=== PATIENT | female | born 1990 | race Caucasian/White ===

== ENCOUNTER → 2016-04-15 | Outpatient (CLI) | payer MEDICAID | LOC: RAD 19:46 | PROVIDERS: ATTEND Student in an Organized Health Care Education/Training Program | DX: N92.1 Excessive and frequent menstruation with irregular cycle (principal) | CPT/HCPCS: 72197; A9576 ==

== ENCOUNTER 2016-10-25 00:17 | Emergency (ER) | payer MEDICAID ==
[2016-10-25 00:56] LABS: APPEARANCE,URINE CLEAR; BILIRUBIN,URINE NEGATIVE (NEGATIVE); GLUCOSE, URINE NEGATIVE (NEGATIVE); KETONES,URINE NEGATIVE (NEGATIVE); LEUKOCYTE ESTERASE,URINE LARGE (NEGATIVE); NITRITE,URINE NEGATIVE (NEGATIVE); PROTEIN,URINE 100 mg/dL (NEGATIVE); URINE SPECIFIC GRAVITY 1.002; UROBILINOGEN,URINE NEGATIVE mg/dL (<2.0)
--- NOTE | 2016-10-25 02:08 | ER Document Report ---
ED GI/ - General Chief Complaint: Vaginal Pain Stated Complaint: VAGINAL PAIN WITH EARLY Time Seen by Provider: 10/25/16 01:53 Notes: Patient is a 26-year-old female that comes emergency department for chief complaint of bladder cramps and pain and blood with urination. Symptoms started earlier today. Patient states she has had this many times in the past and has even been evaluated and treated by urology because of this. She is also at 7 weeks gestation, had a normal ultrasound showing an IUP 2 days ago. She denies fever or chills, she states she had nausea earlier but it resolved, she denies vomiting. She denies flank pain. She denies upper abdominal pain. She denies vaginal bleeding or discharge. TRAVEL OUTSIDE OF THE [place] IN LAST 30 DAYS: No - Related Data Allergies/Adverse Reactions: latex [Latex] Allergy (Intermediate, Verified 06/04/14 10:30) rash Past Medical History - General Information source: Patient - Social History Smoking Status: Never Smoker Frequency of alcohol use: None Drug Abuse: None Lives with: Family Family History: Arthritis, CAD, CVA, DM, Hyperlipidemia, Hypertension, Malignancy, Thyroid Disfunction - Past Medical History Cardiac Medical History: Denies: Hx Coronary Artery Disease, Hx Heart Attack Pulmonary Medical History: Denies: Hx Asthma, Hx Bronchitis, Hx COPD, Hx Pneumonia Neurological Medical History: Denies: Hx Cerebrovascular Accident, Hx Seizures Renal/ Medical History: Denies: Hx Peritoneal Dialysis Musculoskeltal Medical History: Denies Hx Arthritis Past Surgical History: Reports: Hx Gynecologic Surgery - IUD surgically removed a year ago - Immunizations Immunizations up to date: Yes Hx Diphtheria, Pertussis, Tetanus Vaccination: Yes Review of Systems - Review of Systems Constitutional: No symptoms reported EENT: No symptoms reported Cardiovascular: No symptoms reported Respiratory: No symptoms reported Gastrointestinal: See HPI Genitourinary: See HPI Female Genitourinary: See HPI Musculoskeletal: No symptoms reported Skin: No symptoms reported Hematologic/Lymphatic: No symptoms reported Neurological/Psychological: No symptoms reported Physical Exam - Vital signs Vitals: Temp Pulse Resp BP Pulse Ox 97.6 F 84 22 H 127/76 H 100 10/25/16 00:25 10/25/16 00:25 10/25/16 00:25 10/25/16 00:25 10/25/16 00:25 Interpretation: Normal - General General appearance: Appears well, Alert - HEENT Head: Normocephalic, Atraumatic Eyes: Normal Pupils: PERRL - Respiratory Respiratory status: No respiratory distress Chest status: Nontender Breath sounds: Normal Chest palpation: Normal - Cardiovascular Rhythm: Regular. No: Tachycardia Heart sounds: Normal auscultation, S1 appreciated, S2 appreciated Murmur: No - Abdominal Inspection: Normal Distension: No distension Bowel sounds: Normal Tenderness: Nontender. No: Tender, Guarding Organomegaly: No organomegaly - Back Back: Normal, Nontender. No: Tender, CVA tenderness - Extremities General upper extremity: Normal inspection, Nontender, Normal color, Normal ROM , Normal temperature General lower extremity: Normal inspection, Nontender, Normal color, Normal ROM , Normal temperature, Normal weight bearing. No: Kelsey's sign - Neurological Neuro grossly intact: Yes Cognition: Normal Orientation: AAOx4 [place] Coma Scale Eye Opening: Spontaneous [place] Coma Scale Verbal: Oriented [place] Coma Scale Motor: Obeys Commands [place] Coma Scale Total: 15 Speech: Normal Motor strength normal: LUE, RUE, LLE, RLE Sensory: Normal - Psychological Associated symptoms: Normal affect, Normal mood - Skin Skin Temperature: Warm Skin Moisture: Dry Skin Color: Normal Course - Re-evaluation Re-evalutation: Nontender abdomen. No CVA tenderness. No fever, no hypotension or tachycardia. Patient does keep going to the bathroom. She complains of dysuria. Urine is consistent with urinary tract infection. Culture placed. Given Keflex and Pyridium. No evidence of pyelonephritis on exam or by symptoms. There is a mild leukocyte elevation. I did discuss an ultrasound because of patient's symptoms, however she declines. She denies any vaginal bleeding. She does have a soft abdomen. She did recently have an ultrasound with IUP. I feel like this is the appropriate decision. HCG is elevated, chemistry is normal. Discussed treatment, follow-up , return precautions, patient states understanding and agreement. - Vital Signs Vital signs: Temp Pulse Resp BP Pulse Ox 98.1 F 87 16 116/70 99 10/25/16 04:53 10/25/16 04:53 10/25/16 04:53 10/25/16 04:53 10/25/16 04:53 - Laboratory Result Diagrams: 10/25/16 03:08 10/25/16 03:08 Laboratory results interpreted by me: 10/25/16 10/25/16 10/25/16 00:27 03:08 03:08 WBC 10.6 H Seg Neutrophils % 87.3 H Lymphocytes % 7.2 L Absolute Neutrophils 9.3 H Beta HCG, Quant 27771.00 H Urine Protein 100 H Urine Blood LARGE H Ur Leukocyte Esterase LARGE H Discharge - Discharge Clinical Impression: Dysuria, Lower abdominal pain Condition: Stable Disposition: HOME, SELF-CARE Additional Instructions: You have a urinary tract infection, we have a urine culture growing in our lab. Remaining studies do not show any concerning abnormalities. Take the Keflex and Pyridium as prescribed. Follow-up with REHABILITATION PHYSICIAN. Return to emergency department for any concerning or worsening symptoms including worsening pain, vaginal bleeding, fever, flank pain, vomiting, etc. Prescriptions: Cephalexin Monohydrate [Keflex 500 mg Capsule] 500 mg PO BID #14 capsule Phenazopyridine HCl [Pyridium 200 mg Tablet] 200 mg PO TID #9 tablet Forms: Return to Work Referrals: ZEE PAUL MD [Primary Care Provider] - Follow up as needed
[2016-10-25] MEDS ORDERED: CEPHALEXIN 500 MG CAPSULE PO ONE (02:28)
[2016-10-25 03:36] LABS: ABSOLUTE LYMPHOCYTES (AUTO) 0.8 10^3/uL (0.5-4.7); ABSOLUTE MONOCYTES (AUTO) 0.6 10^3/uL (0.1-1.4); ABSOLUTE NEUT (AUTO) 9.3 10^3/uL (1.7-8.2); BASOPHILS % (AUTO) 0.2 % (0-2); EOSINOPHILS % (AUTO) 0.1 % (0-6); HEMATOCRIT 39.1 % (36.0-47.0); HEMOGLOBIN 13.2 g/dL (12.0-15.5); HGB HCT DIFFERENCE 0.5; LYMPHOCYTES % (AUTO) 7.2 % (13-45); MEAN CORPUSCULAR HEMOGLOBIN 29.9 pg (27.0-33.4); MEAN CORPUSCULAR HGB CONC 33.7 g/dL (32.0-36.0); MEAN CORPUSCULAR VOLUME 89 fl (80-97); MONOCYTES % (AUTO) 5.2 % (3-13); RED CELL DISTRIBUTION WIDTH 12.9 % (11.5-14.0); SEGMENTED NEUTROPHILS % (AUTO) 87.3 % (42-78); WHITE BLOOD COUNT 10.6 10^3/uL (4.0-10.5)
[2016-10-25 03:40] LABS: ANION GAP 12 (5-19); BLOOD UREA NITROGEN 9 mg/dL (7-20); CALCIUM 9.1 mg/dL (8.4-10.2); CARBON DIOXIDE 23 mmol/L (22-30); CHLORIDE 104 mmol/L (98-107); CREATININE RESULT 0.76 mg/dL (0.52-1.25); GLUCOSE 94 mg/dL (75-110); POTASSIUM 4.2 mmol/L (3.6-5.0); SODIUM 138.7 mmol/L (137-145)
[2016-10-25] MEDS ORDERED: PHENAZOPYRIDINE HCL 200 MG TABLET PO ONE (04:02)
[2016-10-25 04:56] VITALS: BP 116/70
== END 2016-10-25 04:56 | disposition home or self-care (01) ==
LOC: ER 00:17
DX: R30.0 Dysuria (principal); R10.30 Lower abdominal pain, unspecified; R10.2 Pelvic and perineal pain; R31.9 Hematuria, unspecified; Z3A.01 Less than 8 weeks gestation of pregnancy
CPT/HCPCS: 99283; 36415; 87086; 84702; 85025; 80048; 81001; J3490

== ENCOUNTER 2017-03-09 16:59 | Observation (INO) | payer MEDICAID ==
[2017-03-09] MEDS ORDERED: BETAMET ACET/BETAMET NA INJ 6 MG/1 ML IM PRN (17:08)
[2017-03-09 17:53] LABS: AMORPHOUS SEDIMENT,URINE TRACE /HPF; APPEARANCE,URINE CLOUDY; BILIRUBIN,URINE NEGATIVE (NEGATIVE); GLUCOSE, URINE NEGATIVE (NEGATIVE); KETONES,URINE NEGATIVE (NEGATIVE); LEUKOCYTE ESTERASE,URINE TRACE (NEGATIVE); NITRITE,URINE NEGATIVE (NEGATIVE); PROTEIN,URINE NEGATIVE (NEGATIVE); URINE SPECIFIC GRAVITY 1.023; UROBILINOGEN,URINE NEGATIVE mg/dL (<2.0)
[2017-03-09] MEDS: IBUPROFEN 600 MG TABLET PO SCH (20:00)
[2017-03-09] MEDS ORDERED: PROGESTERONE,MICRONIZED 100 MG CAPSULE PV SCH (22:00)
--- NOTE | 2017-03-10 08:43 | Admission Physical ---
Datetime Report Generated by CPN: 03/10/2017 08:43 CURRENT ADMISSION Chief Complaint: Uterine Contractions Indication for Induction: Not Applicable Indication for Induction: , Intrauterine ; Observation/Evaluation; Obstetrical Complication Admit Plan: Admit to Unit; Initiate Labor Protocol ALLERGIES Medication Allergies: No Medication Allergies: latex/MO/rash (03/09/2017) Medication Allergies: latex/MO/rash (06/04/2014) Latex: Latex Allergies OBSTETRICAL HISTORY EDC: 06/13/2017 00:00 : 2 Para: 1 Term: 1 : 0 SAB: 0 IAB: 0 Ectopic: 0 Livin Cesareans: 0 VBACs: 0 Multiple Births: 0 Gestational Diabetes: No Rh Sensitization: No Incompetent Cervix: No ROS: No Infertility: No ART Treatment: No Uterine Anomaly: Yes IUGR: No Hx Previous C/S: No Macrosomia: No Hx Loss/Stillborn: No PIH: No Hx : No Placenta Previa/Abruption: No Depression/PP Depression: Yes PTL/PROM: No Post Hemorrhage: No Current Procedures: Ultrasound Obstetrical History Comments: G1-38.6 baby girl 7lbs 7oz G2-current BICORNATE UTERUS SEE RECORDS Alcohol: No Marijuana : No Cocaine: No Other Illicit Drugs: No Cigarettes: Never Smoker. 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 Surgery: No Heart Disease: No Hosp/Surgery: No Autoimmune Disorder: No Anesthetic Complications: No Kidney Disease: No Abnormal Pap Smear: No Neuro/Epilepsy: No Psychiatric Disorders: No Other Medical Diseases: No Hepatitis/Liver Disease: No Significant Family History: No Varicosities/Phlebitis: No Trauma/Violence : No Thyroid Dysfunction: No Medical History Comments: ANXIETY (on zoloft), MIGRAINES INFECTIOUS HISTORY Gonorrhea: No Genital Herpes: No Chlamydia: No Tuberculosis: No Syphilis: No Hepatitis: No HIV/AIDS Exposure: No Rash or Viral Illness: No HPV: No PHYSICAL EXAM General: Normal HEENT: Normal Neurologic: Normal Thyroid: Normal Heart: Normal Lungs: Normal Breast: Deferred Back: Normal Abdomen: Normal Genitourinary Exam: Normal Extremities: Normal DTRs: Normal Pelvic Type: Adequate VAGINAL EXAM Dilatation: closed MEMBRANES Membranes: Intact FETUS A EGA: 26.2 Monitoring: External US Decelerations: None Admit Comment: pt admitted for observation after falling and then began leyla.. Pt noted on US to have funneling of membranes, she is admitted for eval and observation. Dr Tubbs has spoken with MFM concerning management PLANS FOR LABOR AND DELIVERY Labor and Delivery: None Pain Management: Epidural Feeding Preference: Breast Benefit of Breast Feed Discussed: Yes Circumcision: N/A INFORMED CONSENT Signature: with User ID: [email or web address]
[2017-03-10] MEDS ORDERED: ACETAMINOPHEN 325 MG TABLET ONE (11:18)
[2017-03-10] MEDS ORDERED: ACETAMINOPHEN 325 MG TABLET PO PRN (11:19)
[2017-03-10] MEDS: IBUPROFEN 600 MG TABLET PO SCH (17:48)
--- NOTE | 2017-03-10 18:14 | RADIOLOGY REPORT (SQ) ---
EXAM DESCRIPTION: U/S OB LIMITED COMPLETED DATE/TIME: 03/10/2017 5:45 pm REASON FOR STUDY: Cervical length COMPARISON: None. TECHNIQUE: Limited transabdominal grayscale ultrasound for evaluation of specific requested obstetri felix parameters. LIMITATIONS: None. FINDINGS: CERVICAL LENGTH: 4.9 cm Closed. SERENE: 17.9 cm. FHR: 144 beats per minute. PRESENTATION: Cephalic. OTHER: No other significant findings. IMPRESSION: LIMITED OBSTETRICAL ULTRASOUND WITH MEASURED PARAMETERS DELINEATED ABOVE. Trimester of : Second trimester - 13 weeks 1 day to 27 weeks 6 days. TECHNICAL DOCUMENTATION: JOB ID: [id number] [employer]- All Rights Reserved
--- NOTE | 2017-03-10 18:18 | L&D Progress Notes ---
PROGRESS NOTES Datetime Report Generated by CPN: 03/10/2017 18:18 PROGRESS NOTE Impression Other: Shortened cervix with funneling Procedures: Ultrasound Plan: Discharge Informed Consent Obtained: Risks, Benefits and Alternatives Discussed Vital Signs : Reviewed Comment: Cervical length is normal now on repeat cervical length by TVUS. Will discharge to home with mondified bedrest and f/u with MFM next week. Pt has remained without contractions. Will cont Crinone and Motrin as per MFM instructions. Modified bedrest precautions reviewed. VAGINAL EXAM Dilatation: closed MEMBRANES Membranes: Intact SIGNATURE SIGNATURE: [id number] Signature: with User ID: [email or web address]
--- NOTE | 2017-03-10 18:24 | PDOC DISCHARGE SUMMARY ---
General - Admit/Disc Date/PCP Admission Date/Primary Care Provider: 03/09/17 18:24 ZEE PAUL MD Discharge Date: 03/10/17 - Discharge Diagnosis (1) Cervical shortening affecting in third trimester Is this a current diagnosis for this admission?: Yes Summary: Admitted due to cervical length 1.7cm with funneling of membranes into cervix on 03/09 and patient was reporting rectal pressure after fall. Pt admitted and started on progesterone and motrin as per MFM recommendations. Will f/u with MFM next week. Cvx length now greater than 4cm and remains closed. Will discharge to home. - Additional Information Home Medications: Vit/Iron Fum/Folic AC [ Tablet] 1 each PO DAILY 03/09/17 Sertraline HCl [Zoloft] 10 mg PO DAILY 03/09/17 History of Present Illness History of Present Illness: ABA GARCIA is a 27 year old at 26+3ega admitted due to cervical length 1.7cm with funneling of membranes into cervix on 03/09 and patient was reporting rectal pressure after fall. Pt admitted and started on progesterone and motrin as per MFM recommendations. Will f/u with MFM next week. Cvx length now greater than 4cm and remains closed. Will discharge to home. Hospital Course Hospital Course: 27 year old at 26+3ega admitted due to cervical length 1.7cm with funneling of membranes into cervix on 03/09 and patient was reporting rectal pressure after fall. Pt admitted and started on progesterone and motrin as per MFM recommendations. Will f/u with MFM next week. Cvx length now greater than 4cm and remains closed. Will discharge to home. Physical Exam - Physical Exam Vital Signs: Intake & Output 03/09/17 03/10/17 03/11/17 06:59 06:59 06:59 Weight 91.6 kg General appearance: PRESENT: no acute distress, well-developed, well-nourished Head exam: PRESENT: atraumatic, normocephalic Respiratory exam: PRESENT: clear to auscultation tika, symmetrical, unlabored Cardiovascular exam: PRESENT: RRR. ABSENT: diastolic murmur, rubs, systolic murmur Pulses: PRESENT: normal dorsalis pedis pul, +2 pedal pulses bilateral Vascular exam: PRESENT: normal capillary refill GI/Abdominal exam: PRESENT: normal bowel sounds, soft. ABSENT: distended, guarding, mass, organolmegaly, rebound, tenderness Rectal exam: PRESENT: deferred Neurological exam: PRESENT: alert, awake, oriented to person, oriented to place , oriented to time, oriented to situation, CN II-XII grossly intact. ABSENT: motor sensory deficit Psychiatric exam: PRESENT: appropriate affect, normal mood. ABSENT: homicidal ideation, suicidal ideation Skin exam: PRESENT: dry, intact, warm. ABSENT: cyanosis, rash Result Impressions: Obstetrics Ultrasound 03/10/17 17:00 IMPRESSION: LIMITED OBSTETRICAL ULTRASOUND WITH MEASURED PARAMETERS DELINEATED ABOVE. Trimester of : Second trimester - 13 weeks 1 day to 27 weeks 6 days. Status: Image reviewed by me Plan Discharge Plan: Discharge to home. Time Spent: Less than 30 Minutes
--- NOTE | 2017-03-10 20:17 | Admission Physical ---
Datetime Report Generated by CPN: 03/10/2017 20:17 CURRENT ADMISSION Chief Complaint: Uterine Contractions Indication for Induction: Not Applicable Indication for Induction: , Intrauterine ; Observation/Evaluation; Obstetrical Complication Admit Plan: Admit to Unit; Initiate Labor Protocol ALLERGIES Medication Allergies: No Medication Allergies: latex/MO/rash (03/09/2017) Medication Allergies: latex/MO/rash (06/04/2014) Latex: Latex Allergies OBSTETRICAL HISTORY EDC: 06/13/2017 00:00 : 2 Para: 1 Term: 1 : 0 SAB: 0 IAB: 0 Ectopic: 0 Livin Cesareans: 0 VBACs: 0 Multiple Births: 0 Gestational Diabetes: No Rh Sensitization: No Incompetent Cervix: No ROS: No Infertility: No ART Treatment: No Uterine Anomaly: Yes IUGR: No Hx Previous C/S: No Macrosomia: No Hx Loss/Stillborn: No PIH: No Hx : No Placenta Previa/Abruption: No Depression/PP Depression: Yes PTL/PROM: No Post Hemorrhage: No Current Procedures: Ultrasound Obstetrical History Comments: G1-38.6 baby girl 7lbs 7oz G2-current BICORNATE UTERUS SEE RECORDS Alcohol: No Marijuana : No Cocaine: No Other Illicit Drugs: No Cigarettes: Never Smoker. [id number] MEDICAL HISTORY Diabetes: No Blood Transfusion: No Pulmonary Disease (Asthma, TB): No Breast Disease: No Hypertension: No Safety Attendant Surgery: No Heart Disease: No Hosp/Surgery: No Autoimmune Disorder: No Anesthetic Complications: No Kidney Disease: No Abnormal Pap Smear: No Neuro/Epilepsy: No Psychiatric Disorders: No Other Medical Diseases: No Hepatitis/Liver Disease: No Significant Family History: No Varicosities/Phlebitis: No Trauma/Violence : No Thyroid Dysfunction: No Medical History Comments: ANXIETY (on zoloft), MIGRAINES INFECTIOUS HISTORY Gonorrhea: No Genital Herpes: No Chlamydia: No Tuberculosis: No Syphilis: No Hepatitis: No HIV/AIDS Exposure: No Rash or Viral Illness: No HPV: No PHYSICAL EXAM General: Normal HEENT: Normal Neurologic: Normal Thyroid: Normal Heart: Normal Lungs: Normal Breast: Deferred Back: Normal Abdomen: Normal Genitourinary Exam: Normal Extremities: Normal DTRs: Normal Pelvic Type: Adequate VAGINAL EXAM Dilatation: closed MEMBRANES Membranes: Intact FETUS A EGA: 26.2 Monitoring: External US Decelerations: None Admit Comment: pt admitted for observation after falling and then began leyla.. Pt noted on US to have funneling of membranes, she is admitted for eval and observation. Dr Tubbs has spoken with MFM concerning management PLANS FOR LABOR AND DELIVERY Labor and Delivery: None Pain Management: Epidural Feeding Preference: Breast Benefit of Breast Feed Discussed: Yes Circumcision: N/A INFORMED CONSENT Informed Consent Obtained: Risks, Benefits and Alternatives Discussed Signature: with User ID: [email or web address]
== END 2017-03-10 19:03 | disposition home or self-care (01) ==
LOC: LC 16:59 → LR 18:24
PROVIDERS: ADMIT Obstetrics & Gynecology Gynecology; ATTEND Obstetrics & Gynecology Gynecology
DX: O26.872 Cervical shortening, second trimester (principal); R19.8 Other specified symptoms and signs involving the digestive system and abdomen; W19.XXXA Unspecified fall, initial encounter; O47.02 False labor before 37 completed weeks of gestation, second trimester; O34.02 Maternal care for unspecified congenital malformation of uterus, second trimester; Q51.3 Bicornate uterus; O99.342 Other mental disorders complicating pregnancy, second trimester; F41.9 Anxiety disorder, unspecified; Z3A.26 26 weeks gestation of pregnancy; Z79.899 Other long term (current) drug therapy
CPT/HCPCS: 87086; 87077; 81001; 87081; 87491; 87591; 82731; 76815; J3490 ×3

== ENCOUNTER 2017-03-22 15:25 | Observation (INO) | payer MEDICAID ==
[2017-03-22] MEDS ORDERED: BETAMET ACET/BETAMET NA INJ 6 MG/1 ML IM ONE (15:35)
[2017-03-22] MEDS ORDERED: BETAMET ACET/BETAMET NA INJ 6 MG/1 ML ONE (15:40)
[2017-03-22] MEDS ORDERED: MAGNESIUM SULFATE 4 GM/100 ML RTUPB IV ONE ×2 (16:44→17:15)
[2017-03-22 16:45] LABS: APPEARANCE,URINE CLEAR; BILIRUBIN,URINE NEGATIVE (NEGATIVE); COLOR,URINE YELLOW; GLUCOSE, URINE NEGATIVE (NEGATIVE); KETONES,URINE NEGATIVE (NEGATIVE); LEUKOCYTE ESTERASE,URINE NEGATIVE (NEGATIVE); NITRITE,URINE NEGATIVE (NEGATIVE); PROTEIN,URINE NEGATIVE (NEGATIVE); URINE SPECIFIC GRAVITY 1.017; UROBILINOGEN,URINE NEGATIVE mg/dL (<2.0)
[2017-03-22 17:00] LABS: URINE AMPHETAMINES SCREEN NEGATIVE; URINE BARBITURATES SCREEN NEGATIVE; URINE BENZODIAZEPINES SCREEN NEGATIVE; URINE COCAINE SCREEN NEGATIVE; URINE MARIJUANA (THC) SCREEN NEGATIVE; URINE METHADONE SCREEN NEGATIVE; URINE PHENCYCLIDINE SCREEN NEGATIVE
[2017-03-22] MEDS ORDERED: MAGNESIUM SULFATE 20 GM/500 ML RTUINJ IV PRN (17:15)
[2017-03-22] MEDS ORDERED: RINGERS SOLUTION,LACTATED 300 ML IV ONE (17:50)
[2017-03-22 18:45] LABS: ABSOLUTE LYMPHOCYTES (AUTO) 0.6 10^3/uL (0.5-4.7); ABSOLUTE MONOCYTES (AUTO) 0.3 10^3/uL (0.1-1.4); ABSOLUTE NEUT (AUTO) 9.8 10^3/uL (1.7-8.2); BASOPHILS % (AUTO) 0.2 % (0-2); EOSINOPHILS % (AUTO) 0.2 % (0-6); HEMATOCRIT 34.3 % (36.0-47.0); HEMOGLOBIN 11.8 g/dL (12.0-15.5); LYMPHOCYTES % (AUTO) 5.5 % (13-45); MEAN CORPUSCULAR HEMOGLOBIN 30.1 pg (27.0-33.4); MEAN CORPUSCULAR HGB CONC 34.4 g/dL (32.0-36.0); MEAN CORPUSCULAR VOLUME 88 fl (80-97); MONOCYTES % (AUTO) 2.4 % (3-13); PLATELET COUNT 181 10^3/uL (150-450); RED BLOOD COUNT 3.91 10^6/uL (3.72-5.28); RED CELL DISTRIBUTION WIDTH 13.3 % (11.5-14.0); SEGMENTED NEUTROPHILS % (AUTO) 91.7 % (42-78); TOTAL CELLS COUNTED % (AUTO) 100 %; WHITE BLOOD COUNT 10.7 10^3/uL (4.0-10.5)
[2017-03-22 18:56] LABS: AMNISURE (ROM) NEGATIVE (NEGATIVE)
[2017-03-22] MEDS ORDERED: BUTALB/ACETAMINOPHEN/CAFFEINE 1 TAB EACH PO ONE (20:46)
[2017-03-22] MEDS ORDERED: BUTALB/ACETAMINOPHEN/CAFFEINE 1 TAB EACH ONE (20:49)
[2017-03-23] MEDS: RINGERS SOLUTION,LACTATED 1,000 ML IV PRN ×2 (03:12→12:21)
[2017-03-23] MEDS ORDERED: ACETAMINOPHEN 325 MG TABLET PO ONE (05:56)
[2017-03-23] MEDS ORDERED: ACETAMINOPHEN 325 MG TABLET ONE (05:59)
[2017-03-23] MEDS ORDERED: BETAMET ACET/BETAMET NA INJ 6 MG/1 ML ONE (14:08)
--- NOTE | 2017-03-23 14:33 | PDOC DISCHARGE SUMMARY ---
General - Admit/Disc Date/PCP Admission Date/Primary Care Provider: 03/22/17 15:46 MALINDA NAIR MD Discharge Date: 03/23/17 - Discharge Diagnosis (1) Cervical shortening affecting in third trimester Is this a current diagnosis for this admission?: Yes Summary: 28+2ega with cervical shortening at 9mm-10 mm on 03/18. Cvx closed. Steroid complete today. Magnesium sulfate for neuroprotection done last evening. GBS positive. Reviewed plan for modified bedrest at discharge. No ctx on monitor since admission yesterday. reviewed need to continue procardia - pt has not picked up. Will discharge to home once 2nd dose of steroids given today. Need to go home with modified bedrest and plan for Disability coverage - will fill out paperwork. (2) Carrier of group B Streptococcus Is this a current diagnosis for this admission?: Yes Summary: Will need prophy in labor. - Additional Information Home Medications: Vit/Iron Fum/Folic AC [ Tablet] 1 each PO DAILY 03/09/17 Sertraline HCl [Zoloft] 10 mg PO DAILY 03/09/17 Acetaminophen [Tylenol 325 mg Tablet] 975 mg PO Q4HP PRN tablet 03/10/17 History of Present Illness Patient complains of: cervical shortening History of Present Illness: ABA GARCIA is a 27 year old female at 28+2ega presented from the office with increased vaginal and rectal pressure with known cervical shortening 9-10mm. Will be steroid complete at discharge. magnesium for neuroprotection given last evening. No ctx throughout the evening - meets criteria for discharge. Hospital Course Hospital Course: 27 year old female at 28+2ega presented from the office with increased vaginal and rectal pressure with known cervical shortening 9-10mm. Will be steroid complete at discharge. magnesium for neuroprotection given last evening. No ctx throughout the evening - meets criteria for discharge. Physical Exam - Physical Exam Vital Signs: Intake & Output 03/22/17 03/23/17 03/24/17 06:59 06:59 06:59 Weight 93.45 kg General appearance: PRESENT: no acute distress, well-developed, well-nourished Head exam: PRESENT: atraumatic, normocephalic Respiratory exam: PRESENT: clear to auscultation tika, symmetrical, unlabored Cardiovascular exam: PRESENT: RRR. ABSENT: diastolic murmur, rubs, systolic murmur Pulses: PRESENT: normal dorsalis pedis pul, +2 pedal pulses bilateral Vascular exam: PRESENT: normal capillary refill GI/Abdominal exam: PRESENT: normal bowel sounds, soft. ABSENT: distended, guarding, mass, organolmegaly, rebound, tenderness Extremities exam: PRESENT: full ROM. ABSENT: calf tenderness, clubbing, pedal edema Neurological exam: PRESENT: alert, awake, oriented to person, oriented to place , oriented to time, oriented to situation, CN II-XII grossly intact. ABSENT: motor sensory deficit Psychiatric exam: PRESENT: appropriate affect, normal mood. ABSENT: homicidal ideation, suicidal ideation Skin exam: PRESENT: dry, intact, warm. ABSENT: cyanosis, rash Result Laboratory Results: 03/22/17 18:11 03/22/17 03/22/17 03/22/17 15:40 18:11 18:11 WBC 10.7 H RBC 3.91 Hgb 11.8 L Hct 34.3 L MCV 88 MCH 30.1 MCHC 34.4 RDW 13.3 Plt Count 181 Seg Neutrophils % 91.7 H Lymphocytes % 5.5 L Monocytes % 2.4 L Eosinophils % 0.2 Basophils % 0.2 Absolute Neutrophils 9.8 H Absolute Lymphocytes 0.6 Absolute Monocytes 0.3 Absolute Eosinophils 0.0 Absolute Basophils 0.0 Urine Color YELLOW Urine Appearance CLEAR Urine pH 9.0 Ur Specific [place] 1.017 Urine Protein NEGATIVE Urine Glucose (UA) NEGATIVE Urine Ketones NEGATIVE Urine Blood NEGATIVE Urine Nitrite NEGATIVE Ur Leukocyte Esterase NEGATIVE Urine WBC (Auto) 1 Urine RBC (Auto) 0 Blood Type A POSITIVE Antibody Screen NEGATIVE Status: Imported from PACS Plan Discharge Plan: Discharge to home Time Spent: Less than 30 Minutes
[2017-03-23] MEDS ORDERED: BETAMET ACET/BETAMET NA INJ 6 MG/1 ML IM ONE (15:50)
== END 2017-03-23 14:32 | disposition home or self-care (01) ==
LOC: LC 15:25 → LR 15:46
PROVIDERS: ADMIT Obstetrics & Gynecology; ATTEND Obstetrics & Gynecology
PROC: 3E0233Z Introduction of Anti-inflammatory into Muscle, Percutaneous Approach (ICD-10-PCS; principal; 2017-03-22)
PROC: 3E0233Z Introduction of Anti-inflammatory into Muscle, Percutaneous Approach (ICD-10-PCS; 2017-03-23)
DX: O26.873 Cervical shortening, third trimester (principal); Z22.330 Carrier of Group B streptococcus; Z3A.28 28 weeks gestation of pregnancy
CPT/HCPCS: 84112; 86900; 86901; 36415; 86850; 85025; 86592; 81001; 80307; 96372 ×2; J3475; J3490 ×2; J0702 ×2

== ENCOUNTER 2017-05-03 13:49 | Outpatient (CLI) | payer MEDICAID ==
--- NOTE | 2017-05-03 14:42 | Non Stress Test Report ---
Non Stress Test Datetime Report Generated by CPN: 05/03/2017 14:41 DEMOGRAPHIC EGA NST: 34.1 INDICATION Indication for Study: Ordered by Provider MONITORING Monitor Explained: Monitor Explained; Test Explained; Patient Verbalized Understanding Time on Monitor: 05/03/2017 14:08 Time off Monitor: 05/03/2017 14:39 NST Duration: 31 NST INTERVENTIONS NST Interventions: IV Fluids Physician Notified NST: Dr. Feroz BABY A: [id number] BABY A Movement : Present Contraction Frequency : none FHR Baseline : 140 Accelerations : 15X15 Decelerations : None Variability : Moderate 6-25bpm NST Review: Meets Criteria for Reactive NST NST Review and Verified By : Edward Becerra RN NST Results: Reactive NST REPORT Report Trigger: Send Report
[2017-05-03] MEDS ORDERED: BUTALB/ACETAMINOPHEN/CAFFEINE 1 TAB EACH PO ONE (14:45)
[2017-05-03] MEDS ORDERED: BUTALB/ACETAMINOPHEN/CAFFEINE 1 TAB EACH ONE (14:48)
[2017-05-03 15:26] LABS: APPEARANCE,URINE SLIGHTLY-CLOUDY; BILIRUBIN,URINE NEGATIVE (NEGATIVE); COLOR,URINE YELLOW; GLUCOSE, URINE NEGATIVE (NEGATIVE); KETONES,URINE NEGATIVE (NEGATIVE); LEUKOCYTE ESTERASE,URINE MODERATE (NEGATIVE); NITRITE,URINE NEGATIVE (NEGATIVE); PROTEIN,URINE NEGATIVE (NEGATIVE); URINE SPECIFIC GRAVITY 1.012; UROBILINOGEN,URINE NEGATIVE mg/dL (<2.0)
[2017-05-03 15:41] LABS: URINE AMPHETAMINES SCREEN NEGATIVE; URINE BARBITURATES SCREEN NEGATIVE; URINE BENZODIAZEPINES SCREEN NEGATIVE; URINE COCAINE SCREEN NEGATIVE; URINE MARIJUANA (THC) SCREEN NEGATIVE; URINE METHADONE SCREEN NEGATIVE; URINE PHENCYCLIDINE SCREEN NEGATIVE
== END 2017-05-03 16:20 | disposition home or self-care (01) ==
LOC: LC 13:49
PROVIDERS: ATTEND Obstetrics & Gynecology
PROC: 4A1HXCZ Monitoring of Products of Conception, Cardiac Rate, External Approach (ICD-10-PCS; principal; 2017-05-03)
DX: Z34.83 Encounter for supervision of other normal pregnancy, third trimester (principal); Z36.89 Encounter for other specified antenatal screening; Z3A.34 34 weeks gestation of pregnancy
CPT/HCPCS: 59025; 81001; 80307; J3490

== ENCOUNTER 2017-05-22 21:41 | Inpatient (IN) | payer MEDICAID ==
[2017-05-22] MEDS ORDERED: PENICILLIN G POTASSIUM 5,000,000 UNIT in DEXTROSE 5%-WATER 100 ML IV ONE (22:11)
[2017-05-22] MEDS ORDERED: RINGERS SOLUTION,LACTATED 1,000 ML IV PRN (22:11)
[2017-05-22] MEDS ORDERED: LIDOCAINE 1% INJ-PF (10 MG/ML) 30 ML SDV ONE (22:14)
[2017-05-22] MEDS ORDERED: MISOPROSTOL 0.2 MG TABLET ONE (22:14)
[2017-05-22] MEDS ORDERED: PENICILLIN G-K 5 MILLION UNIT VIAL ONE (22:15)
[2017-05-22] MEDS ORDERED: OXYTOCIN/NORMAL SALINE 20 UNIT/1,000 ML RTUINJ ONE (22:15)
[2017-05-22 22:18] LABS: APPEARANCE,URINE SLIGHTLY-CLOUDY; BILIRUBIN,URINE NEGATIVE (NEGATIVE); COLOR,URINE STRAW; GLUCOSE, URINE NEGATIVE (NEGATIVE); KETONES,URINE NEGATIVE (NEGATIVE); LEUKOCYTE ESTERASE,URINE NEGATIVE (NEGATIVE); NITRITE,URINE NEGATIVE (NEGATIVE); PROTEIN,URINE NEGATIVE (NEGATIVE); URINE SPECIFIC GRAVITY 1.005; UROBILINOGEN,URINE NEGATIVE mg/dL (<2.0)
[2017-05-22 22:18] LABS: AMNISURE (ROM) NEGATIVE (NEGATIVE)
[2017-05-22 22:30] LABS: ABSOLUTE LYMPHOCYTES (AUTO) 1.2 10^3/uL (0.5-4.7); ABSOLUTE MONOCYTES (AUTO) 0.7 10^3/uL (0.1-1.4); ABSOLUTE NEUT (AUTO) 5.8 10^3/uL (1.7-8.2); BASOPHILS % (AUTO) 0.2 % (0-2); EOSINOPHILS % (AUTO) 0.4 % (0-6); HEMATOCRIT 32.6 % (36.0-47.0); HEMOGLOBIN 10.9 g/dL (12.0-15.5); MEAN CORPUSCULAR HEMOGLOBIN 27.8 pg (27.0-33.4); MEAN CORPUSCULAR HGB CONC 33.4 g/dL (32.0-36.0); MEAN CORPUSCULAR VOLUME 83 fl (80-97); MONOCYTES % (AUTO) 9.1 % (3-13); PLATELET COUNT 169 10^3/uL (150-450); RED BLOOD COUNT 3.91 10^6/uL (3.72-5.28); RED CELL DISTRIBUTION WIDTH 14.1 % (11.5-14.0); SEGMENTED NEUTROPHILS % (AUTO) 75.3 % (42-78); TOTAL CELLS COUNTED % (AUTO) 100 %; WHITE BLOOD COUNT 7.7 10^3/uL (4.0-10.5)
[2017-05-22 22:37] LABS: URINE BARBITURATES SCREEN NEGATIVE; URINE BENZODIAZEPINES SCREEN NEGATIVE; URINE COCAINE SCREEN NEGATIVE; URINE MARIJUANA (THC) SCREEN NEGATIVE; URINE METHADONE SCREEN NEGATIVE; URINE PHENCYCLIDINE SCREEN NEGATIVE
[2017-05-22 22:42] LABS: URINE AMPHETAMINES SCREEN NEGATIVE
[2017-05-22] MEDS ORDERED: OXYTOCIN/NORMAL SALINE 20 UNIT/1,000 ML RTUINJ IV PRN (23:53)
[2017-05-23] MEDS ORDERED: ACETAMINOPHEN 325 MG TABLET ONE (00:22)
[2017-05-23] MEDS ORDERED: ACETAMINOPHEN 325 MG TABLET PO ONE (00:23)
[2017-05-23] MEDS ORDERED: PENICILLIN G POTASSIUM 2,500,000 UNIT in DEXTROSE 5%-WATER 50 ML IV SCH (02:12)
[2017-05-23] MEDS ORDERED: FENTANYL CITRATE INJ/PF 100 MCG/2 ML AMPUL ONE (02:39)
[2017-05-23] MEDS ORDERED: EPHEDRINE SULFATE INJ 50 MG/1 ML AMPULE ONE (02:39)
[2017-05-23] MEDS ORDERED: PHENYLEPHRINE HCL INJ/PF 10 MG/1 ML SDV ONE (02:39)
[2017-05-23] MEDS ORDERED: PENICILLIN G-K 5 MILLION UNIT VIAL ONE (02:40)
[2017-05-23] MEDS ORDERED: BUPIVACAINE HCL 0.25 % INJ/PF (2.5 MG/1 ML) 30 ML VIAL ONE (02:40)
[2017-05-23] MEDS ORDERED: FENTANYL/BUPIVACAINE/NS/PF 200 MCG/100 ML RTUINJ EPI ONE (02:40)
--- NOTE | 2017-05-23 04:14 | L&D Progress Notes ---
PROGRESS NOTES Datetime Report Generated by CPN: 05/23/2017 04:14 PROGRESS NOTE Impression: Normal Progression of Labor Procedures: Sterile Vag Exam Plan: Continue Present Management Informed Consent Obtained: Vaginal Delivery; Risks, Benefits and Alternatives Discussed Informed Consent Obtained: Vaginal Delivery; Risks, Benefits and Alternatives Discussed Vital Signs : Reviewed; Within Normal Limits Comment: Pt now comfortable after epidural. Not on pitocin. SVE 6-7//-1. Spontaneous rupture of membranes during checking cervix. Anticipate VAGINAL EXAM Dilatation: 7 Dilatation: 6 Effacement: 90 Effacement: 80 Station: -1 Station: -1 Contractions: q 2-3 MEMBRANES Membranes: Intact FETUS A FHR - Baseline: 155 Monitoring: External US Variability: Moderate 6-25bpm Accelerations: 15X15 Decelerations: None FHR Category: Category I Presentation: Vertex SIGNATURE SIGNATURE: [id number] SIGNATURE: [id number];[id number];[id number] SIGNATURE: [id number];[id number] Signature: with User ID: [email or web address]
[2017-05-23] MEDS ORDERED: OXYTOCIN/NORMAL SALINE 20 UNIT/1,000 ML RTUINJ IV PRN (05:36)
[2017-05-23] MEDS ORDERED: DIBUCAINE 1% OINTMENT 28 GM TP PRN (05:36)
[2017-05-23] MEDS ORDERED: PROMETHAZINE HCL 25 MG TABLET PO PRN (05:36)
[2017-05-23] MEDS ORDERED: PROMETHAZINE HCL 25 MG SUPP.RECT PR PRN (05:36)
[2017-05-23] MEDS ORDERED: MAGNESIUM HYDROXIDE SUSP 30 ML UDCUP PO PRN (05:36)
[2017-05-23] MEDS ORDERED: GLYCERIN/WITCH HAZEL LEAF 1 EACH MED..PAD TP PRN (05:36)
[2017-05-23] MEDS ORDERED: ACETAMINOPHEN WITH CODEINE #3 TABLET PO PRN ×2 (05:36)
[2017-05-23] MEDS ORDERED: PSEUDOEPHEDRINE HCL 30 MG TABLET PO PRN (05:36)
[2017-05-23] MEDS ORDERED: ZOLPIDEM TARTRATE 5 MG TABLET PO PRN (05:36)
[2017-05-23] MEDS ORDERED: MEASLES,MUMPS&RUBELLA VACC/PF 0.5 ML VIAL SUBCUT PRN (05:36)
[2017-05-23] MEDS ORDERED: BENZOCAINE/MENTHOL AEROSOL SPRAY 56 ML TOP PRN (05:36)
[2017-05-23] MEDS ORDERED: PROMETHAZINE HCL INJ 25 MG/1 ML VIAL IV PRN (05:36)
[2017-05-23] MEDS ORDERED: NA PHOS,M-B/NA PHOS,DI-BA (ADULT) 133 ML ENEMA PR PRN (05:36)
[2017-05-23] MEDS ORDERED: ACETAMINOPHEN 650 MG SUPP.RECT PR PRN (05:36)
[2017-05-23] MEDS ORDERED: DIPHENHYDRAMINE HCL 25 MG CAPSULE PO PRN (05:36)
--- NOTE | 2017-05-23 06:23 | Delivery Summary ---
Del Sum A-C Datetime Report Generated by CPN: 05/23/2017 06:22 DELIVERY PERSONNEL DELIVERY PERSONNEL: [id number] Delivery Doctor:: Rebecca Tubbs MD Labor and Delivery Nurse:: Yolanda Celestin RNsecurity coordinator Nurse:: Sylvia Contreras RN Strategic Marketing Manager/ORACLE SECURITY CONSULTANT: Minda Semar, OPERATIONS AND MAINTENANCE SUPERVISOR MATERNAL INFORMATION Delivery Anesthesia: Epidural Medications After Delivery: Pitocin Drip 20 Units/1000ml NSS Estimated Blood Loss (ml): 300 Maternal Complications: None Provider Comments: VFI delivered in HAJA presentation over intact perineum. Shoulders and body delivered without difficulty. Cord doubly clamped and cut and to maternal abdomen for NRP. Placenta delivered intact spontaneously. FF at U. Mother and baby stable upon provider leaving the room. Apgars 9/9. LABOR SUMMARY EDC: 06/13/2017 00:00 No. Babies in Womb: 1 Attempted: No Labor Anesthesia: Epidural LABOR INFORMATION Reason for Induction: Not Applicable Onset of Labor: 05/23/2017 02:21 Complete Dilatation: 05/23/2017 05:11 Oxytocin: N/A Group B Beta Strep: Positive Antibiotics # of Doses: 2 Antibiotics Time of Last Dose: 0249 Name of Antibiotic Given: Penicillin Steroids Given: None Reason Steroids Not Administered: Not Applicable MEMBRANES Membranes Rupture Method: Spontaneous Rupture of Membranes: 05/23/2017 04:07 Length of Rupture (hr): 1.23 Amniotic Fluid Color: Clear Amniotic Fluid Amount: Moderate Amniotic Fluid Odor: Normal STAGES OF LABOR Stage 1 hr: 2 Stage 1 min: 50 Stage 2 hr: 0 Stage 2 min: 10 Stage 3 hr: 0 Stage 3 min: 5 Total Time in Labor hr: 3 Total Time in Labor min: 5 VAGINAL DELIVERY Episiotomy: None Laceration #1: None Laceration Extension #1: N/A Laceration Repair: Not Applicable Sponge Count Correct: Yes Sharps Count Correct: Yes CSECTION DELIVERY Primary Indication: N/A Secondary Indication: N/A CSection Incidence: N/A Labor: N/A Elective: N/A CSection Incision: N/A BABY A INFORMATION Delivery Date/Time: 05/23/2017 05:21 Method of Delivery: Vaginal Born in Route : No : N/A Forceps: N/A Vacuum Extraction: N/A Shoulder Dystocia : No PRESENTATION/POSITION BABY A Presentation: Cephalic Cephalic Presentation: Vertex Vertex Position: Left Occipital Anterior Breech Presentation: N/A PLACENTA INFORMATION BABY A Placenta Delivery Time : 05/23/2017 05:26 Placenta Method of Delivery: Spontaneous Placenta Status: Delivered SCORES BABY A Heart Rate 1 min: >100 bpm Resp Effort 1 min: Good Cry Reflex Irritability 1 min: Cough or Sneeze or Pulls Away Muscle Tone 1 min: Active Motion Color 1 min: Body O'Brien, Extremities Blue Resuscitation Effort 1 min: N/A SCORE 1 MIN: 9 Heart Rate 5 min: >100 bpm Resp Effort 5 min: Good Cry Reflex Irritability 5 min: Cough or Sneeze or Pulls Away Muscle Tone 5 min: Active Motion Color 5 min: Body O'Brien, Extremities Blue Resuscitation Effort 5 min: N/A SCORE 5 MIN: 9 INFORMATION BABY A Gestational Age at Delivery: 37.0 Gestational Status: Early Term- 37- 38.6 Weeks Outcome : Liveborn Condition : Stable Sex: Female IDENTIFICATION BABY A Verification Date/Time: 05/23/2017 05:54 ID Band Number: [id number] Mother's Name Verified: Yes RN Verifying Infant: Severo Celestin RN/Alva Guidry RN WEIGHT/LENGTH BABY A Birthweight (gm): 3240 Weight (lb): 7 Weight (oz): 2 Infant Length (in): 18.50 Length (cm): 46.99 CORD INFORMATION BABY A No. Cord Vessels: 3 Nuchal Cord : N/A Cord Blood Taken: Yes-For Storage (Mom's Blood type +) Suction: Mouth; Nose ASSESSMENT BABY A Complications: None Physical Findings at Delivery: Within Normal Limits Respirations: Appears Normal Skin to Skin: Yes Skin to Skin Time (min): 25 Marble Finisher/ALS Called : No Infant Care By: K. Ben RN Transferred To: Remains with Mother BABY B INFORMATION : N/A SIGNATURES Signature: with User ID: [email or web address]
--- NOTE | 2017-05-23 09:43 | Admission Physical ---
Datetime Report Generated by CPN: 05/23/2017 09:43 CURRENT ADMISSION Chief Complaint: Uterine Contractions Chief Complaint: Uterine Contractions Indication for Induction: Not Applicable Indication for Induction: Not Applicable Indication for Induction: Term, Intrauterine ; Active Labor Indication for Induction: , Intrauterine ; Observation/Evaluation; Obstetrical Complication Admit Plan: Admit to Unit; Initiate Labor Protocol Admit Plan: Admit to Unit; Initiate Labor Protocol ALLERGIES Medication Allergies: Yes Medication Allergies: latex/MO/rash (05/22/2017) Medication Allergies: levaquin, latex/MO/rash (05/22/2017) Medication Allergies: latex/MO/rash (05/03/2017) Medication Allergies: latex/MO/rash (03/22/2017) Medication Allergies: latex/MO/rash (03/09/2017) Medication Allergies: latex/MO/rash (06/04/2014) Latex: Latex Allergies OBSTETRICAL HISTORY EDC: 06/13/2017 00:00 : 2 Para: 1 Term: 1 : 0 SAB: 0 IAB: 0 Ectopic: 0 Livin Cesareans: 0 VBACs: 0 Multiple Births: 0 Gestational Diabetes: No Rh Sensitization: No Incompetent Cervix: No ROS: No Infertility: No ART Treatment: No Uterine Anomaly: Yes IUGR: No Hx Previous C/S: No Macrosomia: No Hx Loss/Stillborn: No PIH: No Hx : No Placenta Previa/Abruption: No Depression/PP Depression: No PTL/PROM: No Post Hemorrhage: No Current Procedures: Ultrasound; NST Obstetrical History Comments: G1-2011 38.6 baby girl 7lbs 7oz G2-current BICORNATE UTERUS SEE RECORDS Alcohol: No Marijuana : No Cocaine: No Other Illicit Drugs: No Cigarettes: Never Smoker. [id number] MEDICAL HISTORY Diabetes: No Blood Transfusion: No Pulmonary Disease (Asthma, TB): No Breast Disease: No Hypertension: No Ssrs Developer Surgery: No Heart Disease: No Hosp/Surgery: Yes Autoimmune Disorder: No Anesthetic Complications: No Kidney Disease: No Abnormal Pap Smear: No Neuro/Epilepsy: No Psychiatric Disorders: No Other Medical Diseases: No Hepatitis/Liver Disease: No Significant Family History: No Varicosities/Phlebitis: No Trauma/Violence : No Thyroid Dysfunction: No Medical History Comments: ANXIETY (on zoloft), MIGRAINES, childbirth INFECTIOUS HISTORY Gonorrhea: No Genital Herpes: No Chlamydia: No Tuberculosis: No Syphilis: No Hepatitis: No HIV/AIDS Exposure: No Rash or Viral Illness: No HPV: No PHYSICAL EXAM General: Normal General: Normal HEENT: Normal HEENT: Normal Neurologic: Normal Neurologic: Normal Thyroid: Deferred Thyroid: Normal Heart: Normal Heart: Normal Lungs: Normal Lungs: Normal Breast: Deferred Breast: Deferred Back: Normal Back: Normal Abdomen: Normal Abdomen: Normal Genitourinary Exam: Normal Genitourinary Exam: Normal Extremities: Normal Extremities: Normal DTRs: Normal DTRs: Normal Pelvic Type: Adequate Pelvic Type: Adequate Vital Signs: Reviewed; Within Normal Limits VAGINAL EXAM Dilatation: 7 Dilatation: 6 Dilatation: closed Effacement: 90 Effacement: 80 Station: -1 Station: -1 Contraction Comments: q 2-3 MEMBRANES Membranes: Intact Membranes: Intact FETUS A EGA: 37.0 EGA: 26.2 Monitoring: External US Monitoring: External US FHR- Baseline: 150 Variability: Moderate 6-25bpm Accelerations: 15X15 Decelerations: None Decelerations: None FHR Category: Category I Presentation: Vertex Admit Comment: 27yo at 36+6ega with history of shortented cervix and advanced cervical dilation to 4cm. Presents to L_D with regular uterine ctx and cvx -/mid/soft (cervical change since exam on Tuesday). GBS positive. Pt with known bicornuate uterus but prior uncomplicated FTSVD at apptox 38wks (pelvis proven to 7#7oz). Pelvis adequate for RYANNE. Reassuring FWB. Anticipate . Pt desires epidural. Admit Comment: pt admitted for observation after falling and then began leyla.. Pt noted on US to have funneling of membranes, she is admitted for eval and observation. Dr Tubbs has spoken with [facility] concerning management PLANS FOR LABOR AND DELIVERY Labor and Delivery: None Pain Management: Epidural Feeding Preference: Formula Benefit of Breast Feed Discussed: Yes Circumcision: N/A INFORMED CONSENT Informed Consent Obtained: Vaginal Delivery; Risks, Benefits and Alternatives Discussed Informed Consent Obtained: Vaginal Delivery; Risks, Benefits and Alternatives Discussed Informed Consent Obtained: Risks, Benefits and Alternatives Discussed Signature: with User ID: [email or web address] Signature: with User ID: [email or web address] : with User ID: [email or web address]
[2017-05-23] MEDS ORDERED: PENICILLIN G-K 5 MILLION UNIT VIAL IV SCH (10:00)
[2017-05-23] MEDS: IBUPROFEN 800 MG TABLET PO SCH ×3 (10:51→22:17)
[2017-05-23] MEDS: PRENATAL VITAMIN W DHA CAPSULE PO SCH (11:10)
[2017-05-23] MEDS: DOCUSATE SODIUM 100 MG CAPSULE PO SCH ×2 (11:10→18:07)
[2017-05-23] MEDS: SENNOSIDES/DOCUSATE 8.6-50 MG 1 EACH TABLET PO SCH (11:10)
[2017-05-23] MEDS: FERROUS SULFATE 325 MG TABLET PO SCH ×2 (11:10→18:06)
[2017-05-23] MEDS: FAMOTIDINE 20 MG TABLET PO SCH ×2 (11:10→22:18)
[2017-05-24] MEDS: IBUPROFEN 800 MG TABLET PO SCH ×3 (05:08→21:17)
[2017-05-24 08:21] LABS: HEMATOCRIT 33.3 % (36.0-47.0); HEMOGLOBIN 11.1 g/dL (12.0-15.5); MEAN CORPUSCULAR HEMOGLOBIN 27.7 pg (27.0-33.4); MEAN CORPUSCULAR HGB CONC 33.3 g/dL (32.0-36.0); MEAN CORPUSCULAR VOLUME 83 fl (80-97); PLATELET COUNT 154 10^3/uL (150-450); RED CELL DISTRIBUTION WIDTH 13.9 % (11.5-14.0); WHITE BLOOD COUNT 6.1 10^3/uL (4.0-10.5)
[2017-05-24] MEDS: SENNOSIDES/DOCUSATE 8.6-50 MG 1 EACH TABLET PO SCH (09:23)
[2017-05-24] MEDS: DOCUSATE SODIUM 100 MG CAPSULE PO SCH ×2 (09:23→17:10)
[2017-05-24] MEDS: FERROUS SULFATE 325 MG TABLET PO SCH ×2 (09:23→17:10)
[2017-05-24] MEDS: BENZOCAINE/MENTHOL SORE THROAT LOZENGE BUCCAL PRN (09:23)
[2017-05-24] MEDS: FAMOTIDINE 20 MG TABLET PO SCH ×2 (09:23→21:17)
[2017-05-24] MEDS: PRENATAL VITAMIN W DHA CAPSULE PO SCH (09:23)
--- NOTE | 2017-05-24 12:18 | PDOC PROGRESS REPORT ---
Subjective-OB Progress Note for:: 05/24/17 Subjective: reports tolerating diet, bleeding slowing, pain controlled with current meds; denies needs. Physical Exam (OB) Vital Signs: Temp Pulse Resp BP Pulse Ox 98.0 F 68 15 110/70 100 05/24/17 08:00 05/24/17 08:00 05/24/17 08:00 05/24/17 08:00 05/24/17 08:00 Intake & Output 05/23/17 05/24/17 05/25/17 06:59 06:59 06:59 Weight 98.1 kg - Abdomen Description: Soft Hernia Present: No Fundal Description: Firm, Midline Fundal Height: u/u - u/2 - Abdominal Tenderness: Nontender - Extremities Lower extremities: Kelsey's sign - neg Calf: Normal, Nontender Objective-Diagnostic Laboratory: 05/24/17 07:41 05/24/17 07:41 WBC 6.1 RBC 4.00 Hgb 11.1 L Hct 33.3 L MCV 83 MCH 27.7 MCHC 33.3 RDW 13.9 Plt Count 154 Assessment and Plan(PN) - Assessment and Plan (1) Normal vaginal delivery Is this a current diagnosis for this admission?: Yes - Time Spent with Patient Time with patient: Less than 15 minutes - Disposition Anticipated Discharge: Home Within: within 24 hours
[2017-05-25] MEDS: BENZOCAINE/MENTHOL SORE THROAT LOZENGE BUCCAL PRN (00:33)
[2017-05-25] MEDS: IBUPROFEN 800 MG TABLET PO SCH (06:26)
--- NOTE | 2017-05-25 09:16 | PDOC PROGRESS REPORT ---
Subjective-OB Progress Note for:: 05/25/17 Subjective: Doing well, ready to go home, eating well, voiding, scant bleeding Physical Exam (OB) Vital Signs: Temp Pulse Resp BP Pulse Ox 98.4 F 73 17 106/70 100 05/25/17 08:32 05/25/17 08:32 05/25/17 08:32 05/25/17 08:32 05/25/17 08:32 - Lochia Lochia Amount: Scant < 10 ml Lochia Color: Rubra/Red - Abdomen Description: Soft Hernia Present: No Fundal Description: Firm, Midline Fundal Height: u/3 - u/4 Objective-Diagnostic Laboratory: 05/24/17 07:41 Assessment and Plan(PN) - Assessment and Plan (1) Normal vaginal delivery Is this a current diagnosis for this admission?: Yes (2) Bicornuate uterus affecting in third trimester, antepartum Is this a current diagnosis for this admission?: Yes (3) Carrier of group B Streptococcus Is this a current diagnosis for this admission?: Yes - Time Spent with Patient Time with patient: Less than 15 minutes - Disposition Anticipated Discharge: Home Within: Other - home today
--- NOTE | 2017-05-25 09:19 | PDOC DISCHARGE SUMMARY ---
Final Diagnosis Discharge Date: 05/25/17 - Final Diagnosis (1) Normal vaginal delivery Is this a current diagnosis for this admission?: Yes (2) Bicornuate uterus affecting in third trimester, antepartum Is this a current diagnosis for this admission?: Yes (3) Carrier of group B Streptococcus Is this a current diagnosis for this admission?: Yes Discharge Data - Discharge Medication Home Medications: Vit/Iron Fum/Folic AC [ Tablet] 1 each PO DAILY 03/09/17 Sertraline HCl [Zoloft] 100 mg PO DAILY 03/09/17 Gestational Age: 37 Reason(s) for Admission: Onset of Labor, Obstetric Complications, Group B Strep Positive Procedures: NST, Ultrasound Intrapartum Procedure(s): Spontaneous Vaginal Delivery - Data Baby 1 Female at 1 minute: 9 at 5 minutes: 9 Weight: 3.232 kg Home with Mother: Yes Complications: No - Diagnosis Test Laboratory: Temp Pulse Resp BP Pulse Ox 98.4 F 73 17 106/70 100 05/25/17 08:32 05/25/17 08:32 05/25/17 08:32 05/25/17 08:32 05/25/17 08:32 05/22/17 05/22/17 05/24/17 21:48 22:20 07:41 RBC 3.91 4.00 Hgb 10.9 L 11.1 L Hct 32.6 L 33.3 L Urine Opiates Screen NEGATIVE - Discharge information/Instructions Discharge Activity: Activity As Tolerated, No Lifting Over 10 Pounds, No Lifting /Push/Pulling, Pelvic Rest Discharge Diet: As Tolerated, Regular Disposition: HOME, SELF-CARE Follow up with: [facility] in: 4, Weeks
[2017-05-25] MEDS: PRENATAL VITAMIN W DHA CAPSULE PO SCH (09:29)
[2017-05-25] MEDS: DOCUSATE SODIUM 100 MG CAPSULE PO SCH (09:29)
[2017-05-25] MEDS: FERROUS SULFATE 325 MG TABLET PO SCH (09:29)
[2017-05-25] MEDS: SENNOSIDES/DOCUSATE 8.6-50 MG 1 EACH TABLET PO SCH (09:29)
[2017-05-25] MEDS: FAMOTIDINE 20 MG TABLET PO SCH (09:30)
[2017-05-25 11:18] VITALS: BP 110/70
== END 2017-05-25 11:35 | disposition home or self-care (01) | DRG 775 ==
LOC: LC 21:41 → LR 22:21 → UNDOADMIN 22:21 → LR 22:25 → 2S 05-23 09:25
PROVIDERS: ADMIT Student in an Organized Health Care Education/Training Program; ATTEND Student in an Organized Health Care Education/Training Program
PROC: 4A1HXCZ Monitoring of Products of Conception, Cardiac Rate, External Approach (ICD-10-PCS; 2017-05-22)
PROC: 10E0XZZ Delivery of Products of Conception, External Approach (ICD-10-PCS; principal; 2017-05-23)
DX: O34.03 Maternal care for unspecified congenital malformation of uterus, third trimester (principal); O99.354 Diseases of the nervous system complicating childbirth; O99.824 Streptococcus B carrier state complicating childbirth; Q51.3 Bicornate uterus; O99.344 Other mental disorders complicating childbirth; F41.9 Anxiety disorder, unspecified; G43.909 Migraine, unspecified, not intractable, without status migrainosus; Z91.040 Latex allergy status; Z88.3 Allergy status to other anti-infective agents; Z3A.37 37 weeks gestation of pregnancy; Z37.0 Single live birth
CPT/HCPCS: 36415; 80307; 81005; 84112; 85025; 85027; 86592; 86850; 86900; 86901; 94760; J2370; J2540; J2590; J3010; J3490

== ENCOUNTER 2020-04-03 11:10 | Emergency (ER) | payer SELFPAY ==
[2020-04-03 11:14] VITALS: BP 123/77
--- NOTE | 2020-04-03 12:48 | ER Document Report ---
ED ENT - General Chief Complaint: Sore Throat Stated Complaint: SORE THROAT/FEVER Time Seen by Provider: 04/03/20 11:47 Notes: CHIEF COMPLAINT: Sore throat for 2 days HPI: 30-year-old female presenting with sore throat for 2 days. Patient looked in the mirror today saw pus and redness of both tonsils and was concerned she might have strep. No voice change. No fever ROS: See HPI - all other systems were reviewed and are otherwise negative Constitutional: no fever Eyes: no drainage, no blurred vision ENT: no runny nose, + sore throat Cardiovascular: no chest pain Resp: no SOB, no cough GI: no vomiting, no diarrhea, no abdominal pain : no dysuria Integumentary: no rash Allergy: no hives Musculoskeletal: no extremity pain or swelling Neurological: no numbness/tingling, no weakness MEDICATIONS: I agree with the patient medications as charted by the RN. ALLERGIES: I agree with the allergies as charted by the RN. PAST MEDICAL HISTORY/PAST SURGICAL HISTORY: Reviewed and agree as charted by RN. SOCIAL HISTORY: Reviewed and agree as charted by RN. FAMILY HISTORY: No significant familial comorbid conditions directly related to patient complaint EXAM: Reviewed vital signs as charted by RN. CONSTITUTIONAL: Alert and oriented and responds appropriately to questions. Well-appearing; well-nourished HEAD: Normocephalic; atraumatic EYES: PERRL; Conjunctivae clear, sclerae non-icteric ENT: normal nose; no rhinorrhea; moist mucous membranes; no uvula edema or deviation, bilateral tonsils are enlarged with erythema and exudate, phonation normal NECK: Supple without meningismus; non-tender; + cervical lymphadenopathy, no masses CARD: RRR; no murmurs, no clicks, no rubs, no gallops; symmetric distal pulses RESP: Normal chest excursion without splinting or tachypnea; breath sounds clear and equal bilaterally; no wheezes, no rhonchi, no rales, pulse oximetry 98% on room air not hypoxic ABD/GI: Normal bowel sounds; non-distended; soft, non-tender, no rebound, no guarding; no palpable organomegaly or masses. BACK: The back appears normal and is non-tender to palpation, there is no CVA tenderness EXT: Normal ROM in all joints; no cyanosis, no effusions, no edema SKIN: Normal color for age and race; warm; dry; good turgor; no acute lesions noted NEURO: Moves all extremities equally; Motor and sensory function intact PSYCH: The patient's mood and manner are appropriate. Grooming and personal hygiene are appropriate. MDM: 30-year-old female sore throat complaint over the last 2 days. She is concerned about strep. She is not concerned about Covid. Both her children are prone to strep. The patient was evaluated during the global COVID-19 pandemic and that diagnosis was suspected/considered upon their initial presentation. Their evaluation, treatment and testing was consistent with current guidelines for patients who present with complaints or symptoms that may be related to COVID-19 TRAVEL OUTSIDE OF THE [place] IN LAST 30 DAYS: No - Related Data Allergies/Adverse Reactions: latex [Latex] Allergy (Intermediate, Verified 05/22/17 21:50) rash Past Medical History - Social History Smoking Status: Never Smoker Family History: Arthritis, CAD, CVA, DM, Hyperlipidemia, Hypertension, Malignancy, Thyroid Disfunction - Past Medical History Cardiac Medical History: Denies: Hx Coronary Artery Disease, Hx Heart Attack Pulmonary Medical History: Denies: Hx Asthma, Hx Bronchitis, Hx COPD, Hx Pneumonia Neurological Medical History: Denies: Hx Cerebrovascular Accident, Hx Seizures Renal/ Medical History: Denies: Hx Peritoneal Dialysis Musculoskeletal Medical History: Denies Hx Arthritis Past Surgical History: Reports: Hx Gynecologic Surgery - IUD surgically removed a year ago - Immunizations Immunizations up to date: Yes Hx Diphtheria, Pertussis, Tetanus Vaccination: Yes Physical Exam - Vital signs Vitals: Temp Pulse Resp BP Pulse Ox 98.2 F 86 16 123/77 97 04/03/20 11:13 04/03/20 11:13 04/03/20 11:13 04/03/20 11:13 04/03/20 11:13 Course - Re-evaluation Re-evalutation: 04/03/20 13:21 Strep and Monospot are both negative although I suspect patient has tonsillitis. We will treat with amoxicillin, follow-up PCP. Patient does not want Covid testing - Vital Signs Vital signs: Temp Pulse Resp BP Pulse Ox 98.2 F 86 16 123/77 97 04/03/20 11:13 04/03/20 11:13 04/03/20 11:13 04/03/20 11:13 04/03/20 11:13 - Laboratory Results Critical Laboratory Results Reviewed: No Critical Results - Radiology Results Critical Radiology Results Reviewed: No Critical Results Discharge - Discharge Clinical Impression: Acute tonsillitis Qualifiers: Pharyngitis/tonsillitis etiology: unspecified etiology Qualified Code(s): J03.90 - Acute tonsillitis, unspecified Condition: Stable Disposition: HOME, SELF-CARE Instructions: Tonsillitis ([facility]) Additional Instructions: 1. medicines as prescribed 2. take Motrin/Tylenol consistently for pain and fever 3. hydrate well at home with fluids/juices 4. recheck with your PCP for further evaluation and treatment, call for appt. 5. return to the ED for any difficulty swallowing or worsening condition 6. warm salt water gargles for throat discomfort 3 times daily Prescriptions: Amoxicillin 1 tab PO TID #30 tab Referrals: PARUL RIVER MD [ACTIVE STAFF] - Follow up as needed
== END 2020-04-03 13:36 | disposition home or self-care (01) ==
LOC: ER 11:10
DX: J03.90 Acute tonsillitis, unspecified (principal); Z91.040 Latex allergy status; Z20.822 Contact with and (suspected) exposure to COVID-19
CPT/HCPCS: 36415; 86308; 87070; 87880; 99283